=== PATIENT | female | born 1965 | race Hispanic/Latino ===

== ENCOUNTER 2018-05-02 15:09 | Emergency (ER) | payer BC, OTHER ==
[2018-05-02 16:07] LABS: Absolute Lymphocytes (CBC) 1.8 K/uL (0.7-4.9); Absolute Monocytes 0.5 K/uL (0.1-1.3); Absolute Neutrophil 3.8 K/uL (1.8-8.0); Basophils % 0.9 % (0-1.3); Hematocrit 37.8 % (36.0-45.0); Lymphocytes % 28.9 % (15.3-44.8); MCH 30.8 pg (27.0-35.0); MCV 92.8 fL (80-100); MPV 8.9 fL (7.6-11.3); Monocytes % 7.4 % (3.3-12.3); RBC Red Blood Cell Count 4.07 M/uL (3.86-4.86)
[2018-05-02 16:20] LABS: Urine Blood TRACE (NEG); Urine Glucose NEGATIVE (NEG); Urine Protein NEGATIVE (NEG); Urine Specific Gravity <1.005 (1.005-1.030); Urine pH 5.5 (5.0-7.0)
--- NOTE | 2018-05-02 16:40 | RAD REPORT ---
EXAM DESCRIPTION: Hitesh Single View05/02/2018 4:15 pm CLINICAL HISTORY: sob COMPARISON: none FINDINGS: The lungs appear clear of acute infiltrate. The heart is normal size IMPRESSION: No acute abnormalities displayed
[2018-05-02 16:49] LABS: Protime INR 0.95
[2018-05-02 16:52] LABS: Potassium 3.4 mEq/L (3.6-5.0)
[2018-05-02 16:58] LABS: Albumin 4.2 g/dL (3.2-5.5); Bilirubin Direct 0.1 mg/dL (0-0.2); Bilirubin Total 0.6 mg/dL (0.3-1.2); Magnesium 2.1 mg/dL (1.8-2.5)
[2018-05-02 17:01] LABS: CKMB Creatine Kinase MB 0.7 ng/ml (0.3-4.0)
[2018-05-02] MEDS ORDERED: NA CHLORIDE 0.9% 2,000 ML ONE (17:37)
[2018-05-02] MEDS ORDERED: POTASSIUM CL SA 10 MEQ TAB PO ONE (17:37)
--- NOTE | 2018-05-02 17:52 | RAD REPORT ---
EXAM DESCRIPTION: CT - Chest For Pe Angio - 05/02/2018 5:36 pm CLINICAL HISTORY: Chest pain. COMPARISON: None. TECHNIQUE: CT angiogram of the pulmonary arteries was performed with MIP. All CT scans are performed using dose optimization technique as appropriate and may include automated exposure control or mA/KV adjustment according to patient size. FINDINGS: No evidence of pulmonary thromboembolism. No acute aortic finding demonstrated. The lungs are clear. No significant pericardial or pleural fluid. No concerning bony finding. IMPRESSION: No evidence of pulmonary thromboembolism. No acute lung findings.
--- NOTE | 2018-05-02 18:09 | EDPHYS ---
Physician Documentation [facility] Name: Chelsea Ambriz Age: 52 yrs Sex: Female : 1965 Arrival Date: 05/02/2018 Time: 15:12 Bed 24 Private MD: Keith Larsen ED Physician Taiwo Fowler HPI: 05/02 16:52 This 52 yrs old Female presents to ER via Ambulatory with complaints of remi Anxiety, Shortness Of Breath. 16:52 The patient has shortness of breath at rest, with light activity. Onset: The remi symptoms/episode began/occurred just prior to arrival, this morning. 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 - Social history:: Smoking status: Patient/guardian denies using tobacco, Patient uses alcohol, weekly. - Ebola Screening: : No symptoms or risks identified at this time. ROS: 16:53 Constitutional: Negative for fever, chills, and weight loss, Eyes: Negative for injury, remi pain, redness, and discharge, ENT: Negative for injury, pain, and discharge, Neck: Negative for injury, pain, and swelling, Cardiovascular: Negative for chest pain, palpitations, and edema, Back: Negative for injury and pain, : Negative for injury, bleeding, discharge, and swelling, MS/Extremity: Negative for injury and deformity, Skin: Negative for injury, rash, and discoloration, Neuro: Negative for headache, weakness, numbness, tingling, and seizure, Psych: Negative for depression, anxiety, suicide ideation, homicidal ideation, and hallucinations, Allergy/Immunology: Negative for hives, rash, and allergies, Endocrine: Negative for neck swelling, polydipsia, polyuria, polyphagia, and marked weight changes, Hematologic/Lymphatic: Negative for swollen nodes, abnormal bleeding, and unusual bruising. 16:53 Respiratory: Positive for shortness of breath, at rest. 16:53 Abdomen/GI: Positive for early satiety, Negative for abdominal pain, nausea and vomiting. Exam: 16:53 Constitutional: This is a well developed, well nourished patient who is awake, alert, remi and in no acute distress. Head/Face: Normocephalic, atraumatic. Eyes: Pupils equal round and reactive to light, extra-ocular motions intact. Lids and lashes normal. Conjunctiva and sclera are non-icteric and not injected. Cornea within normal limits. Periorbital areas with no swelling, redness, or edema. ENT: Nares patent. No nasal discharge, no septal abnormalities noted. Tympanic membranes are normal and external auditory canals are clear. Oropharynx with no redness, swelling, or masses, exudates, or evidence of obstruction, uvula midline. Mucous membranes moist. Neck: Trachea midline, no thyromegaly or masses palpated, and no cervical lymphadenopathy. Supple, full range of motion without nuchal rigidity, or vertebral point tenderness. No Meningismus. Chest/axilla: Normal chest wall appearance and motion. Nontender with no deformity. No lesions are appreciated. Cardiovascular: Regular rate and rhythm with a normal S1 and S2. No gallops, murmurs, or rubs. Normal PMI, no JVD. No pulse deficits. Respiratory: Lungs have equal breath sounds bilaterally, clear to auscultation and percussion. No rales, rhonchi or wheezes noted. No increased work of breathing, no retractions or nasal flaring. Abdomen/GI: Soft, non-tender, with normal bowel sounds. No distension or tympany. No guarding or rebound. No evidence of tenderness throughout. Back: No spinal tenderness. No costovertebral tenderness. Full range of motion. Female : Normal external genitalia. Skin: Warm, dry with normal turgor. Normal color with no rashes, no lesions, and no evidence of cellulitis. MS/ Extremity: Pulses equal, no cyanosis. Neurovascular intact. Full, normal range of motion. Neuro: Awake and alert, GCS 15, oriented to person, place, time, and situation. Cranial nerves II-XII grossly intact. Motor strength 5/5 in all extremities. Sensory grossly intact. Cerebellar exam normal. Normal gait. Psych: Awake, alert, with orientation to person, place and time. Behavior, mood, and affect are within normal limits. 16:53 Musculoskeletal/extremity: DVT Exam: No signs of deep vein thrombosis. no pain, no swelling, no tenderness, negative Homans' sign noted on exam, no appreciated bluish discoloration, no erythema, no increased warmth. Vital Signs: 15:18 BP 147 / 85; Pulse 103; Resp 20; Temp 98.9(O); Pulse Ox 100% ; Weight 73.03 kg; Height sv 5 ft. 2 in. (157.48 cm); Pain 0/10; 17:05 BP 132 / 86; Pulse 70; Resp 16; Pulse Ox 100% on R/A; Pain 0/10; ed1 19:46 BP 142 / 86; Pulse 73; Resp 20; Temp 97.5(O); Pulse Ox 100% on R/A; Pain 0/10; ed1 15:18 Body Mass Index 29.45 (73.03 kg, 157.48 cm) sv MDM: 15:[address] [facility] 05/02 15:25 Order name: Basic Metabolic Panel; Complete Time: 17:32 [facility] 05/02 15:25 Order name: BNP; Complete Time: 17:32 [facility] 05/02 15:25 Order name: CBC with Diff; Complete Time: 16:56 [facility] 05/02 15:25 Order name: Ckmb; Complete Time: 17:32 [facility] 05/02 15:25 Order name: CPK; Complete Time: 17:32 [facility] 05/02 15:25 Order name: LFT's; Complete Time: 17:32 [facility] 05/02 15:25 Order name: Magnesium; Complete Time: 17:32 [facility] 05/02 15:25 Order name: PT-INR; Complete Time: 16:56 [facility] 05/02 15:25 Order name: Ptt, Activated; Complete Time: 16:56 [facility] 05/02 15:25 Order name: Troponin (emerg Dept Use Only); Complete Time: 17:32 [facility] 05/02 15:25 Order name: D-Dimer; Complete Time: 16:56 [facility] 05/02 15:25 Order name: Urine Culture [facility] 05/02 15:57 Order name: Urine Dipstick--Ancillary (enter results); Complete Time: 16:56 05/02 16:00 Order name: Test, Serum; Complete Time: 16:56 ed1 05/02 15:25 Order name: XRAY Chest (1 view); Complete Time: 16:56 [facility] 05/02 15:25 Order name: EKG; Complete Time: 15:26 [facility] 05/02 15:25 Order name: Cardiac monitoring; Complete Time: 15:47 [facility] 05/02 15:25 Order name: EKG - Nurse/Tech; Complete Time: 15:35 [facility] 05/02 15:25 Order name: IV Saline Lock; Complete Time: 15:47 [facility] 05/02 15:25 Order name: Labs collected and sent; Complete Time: 15:47 [facility] 05/02 15:25 Order name: O2 Per Protocol; Complete Time: 15:47 [facility] 05/02 15:25 Order name: O2 Sat Monitoring; Complete Time: 15:47 [facility] 05/02 15:25 Order name: Urine Dipstick-Ancillary (obtain specimen); Complete Time: 17:37 [facility] 05/02 16:56 Order name: CT Chest For PE Angio; Complete Time: 18:08 [facility] 05/02 16:56 Order name: US Extremity Venous W Compression Kael remi Administered Medications: 18:25 Drug: NS 0.9% 1000 ml Route: IV; Rate: 1 bolus; Site: left antecubital; ed1 19:45 Follow up: IV Status: Completed infusion; IV Intake: 1000ml ed1 18:26 Drug: NS 0.9% 1000 ml Route: IV; Rate: 1 bolus; Site: left antecubital; ed1 19:43 Follow up: IV Status: Completed infusion; IV Intake: 1000ml ed1 18:26 Drug: Potassium Chloride 20 mEq Route: PO; ed1 19:45 Follow up: Response: No adverse reaction ed1 Disposition: 05/02/18 18:08 Discharged to Home. Impression: Anxiety disorder, unspecified, Dyspnea, unspecified. - Condition is Stable. - Discharge Instructions: Panic Attacks, Shortness of Breath, Shortness of Breath, [id number], Panic Attacks, [id number]. - Prescriptions for Protonix 40 mg Oral Tablet, Delayed Release (E.C.) - take 1 tablet by ORAL route once daily; 14 tablet. Xanax 0.5 mg Oral Tablet - take 1 tablet by ORAL route every 8 hours As needed; 20 tablet. - Medication Reconciliation Form, Thank You Letter, Antibiotic Education, Prescription Opioid Use form. - Follow up: Keith Larsen; When: 2 - 3 days; Reason: Recheck today's complaints, Continuance of care, Re-evaluation by your physician. - Problem is new. - Symptoms have improved. Signatures: Dispatcher [employer] Shannon Ambrose RN RN sv Anderson, Corey, MD MD cha Riggs, Erika, IT PORTFOLIO MANAGER IT PORTFOLIO MANAGER ed1 Corrections: (The following items were deleted from the chart) 19:48 18:08 05/02/2018 18:08 Discharged to Home. Impression: Anxiety disorder, unspecified; ed1 Dyspnea, unspecified. Condition is Stable. Discharge Instructions: Panic Attacks, Shortness of Breath, Shortness of Breath, [id number], Panic Attacks, Vkho-[id number]. Prescriptions for Protonix 40 mg Oral Tablet, Delayed Release (E.C.) - take 1 tablet by ORAL route once daily; 14 tablet, Xanax 0.5 mg Oral Tablet - take 1 tablet by ORAL route every 8 hours As needed; 20 tablet. and Forms are Medication Reconciliation Form, Thank You Letter, Antibiotic Education, Prescription Opioid Use. Follow up: Keith Larsen; When: 2 - 3 days; Reason: Recheck today's complaints, Continuance of care, Re-evaluation by your physician. Problem is new. Symptoms have improved. remi
--- NOTE | 2018-05-02 18:09 | ER ---
Nurse's Notes [facility] Name: Chelsea Ambriz Age: 52 yrs Sex: Female : 1965 Arrival Date: 05/02/2018 Time: 15:12 Bed 24 Private MD: Keith Larsen Diagnosis: Anxiety disorder, unspecified;Dyspnea, unspecified Presentation: 05/02 15:16 Presenting complaint: Patient states: SOB since this morning and then started having sv anxiety. c/o nausea/acid reflux that has been going on for weeks. Transition of care: patient was not received from another setting of care. Onset of symptoms was May 02, 2018. Care prior to arrival: None. 15:16 Method Of Arrival: Ambulatory sv 15:16 Acuity: STEPHANY 3 sv 15:26 Risk Assessment: Do you want to hurt yourself or someone else? Patient reports no ed1 desire to harm self or others. Initial Sepsis Screen: Does the patient meet any 2 criteria? No. Patient's initial sepsis screen is negative. Does the patient have a suspected source of infection? No. Patient's initial sepsis screen is negative. 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 - Social history:: Smoking status: Patient/guardian denies using tobacco, Patient uses alcohol, weekly. - Ebola Screening: : No symptoms or risks identified at this time. Screenin:26 Abuse screen: Denies threats or abuse. Denies injuries from another. Nutritional ed1 screening: No deficits noted. Tuberculosis screening: No symptoms or risk factors identified. Fall Risk None identified. Assessment: 15:26 General: Appears in no apparent distress. Behavior is calm, cooperative. Pain: Denies ed1 pain. Neuro: Level of Consciousness is awake, alert, obeys commands, Oriented to person, place, time, situation. Cardiovascular: Denies chest pain, Heart tones S1 S2 present. Respiratory: Reports shortness of breath at rest Airway is patent Respiratory effort is even, unlabored, Respiratory pattern is regular, symmetrical, Breath sounds are clear bilaterally. GI: Reports acid reflux symptoms for a "couple of weeks". : No signs and/or symptoms were reported regarding the genitourinary system. EENT: No signs and/or symptoms were reported regarding the EENT system. Derm: Skin is pink, warm \\T\\ dry. Musculoskeletal: Circulation, motion, and sensation intact. 15:35 General: The previous assessment is accurate, call light remains within reach. . ss 17:05 Reassessment: Patient appears in no apparent distress at this time. No changes from ed1 previously documented assessment. Patient and/or family updated on plan of care and expected duration. Pain level reassessed. Patient is alert, oriented x 3, equal unlabored respirations, skin warm/dry/pink. Patient denies pain at this time. 19:46 Reassessment: Patient appears in no apparent distress at this time. Patient and/or ed1 family updated on plan of care and expected duration. Pain level reassessed. Patient is alert, oriented x 3, equal unlabored respirations, skin warm/dry/pink. Patient denies pain at this time. Patient states feeling better. Patient states symptoms have improved. Vital Signs: 15:18 BP 147 / 85; Pulse 103; Resp 20; Temp 98.9(O); Pulse Ox 100% ; Weight 73.03 kg; Height sv 5 ft. 2 in. (157.48 cm); Pain 0/10; 17:05 BP 132 / 86; Pulse 70; Resp 16; Pulse Ox 100% on R/A; Pain 0/10; ed1 19:46 BP 142 / 86; Pulse 73; Resp 20; Temp 97.5(O); Pulse Ox 100% on R/A; Pain 0/10; ed1 15:18 Body Mass Index 29.45 (73.03 kg, 157.48 cm) sv ED Course: 15:12 Patient arrived in ED. mr 15:12 Keith Larsen MD is Private Physician. mr 15:17 Triage completed. sv 15:18 Arm band placed on right wrist. sv 15:22 Karo Duenas LVN is Primary Nurse. ed1 15:22 Taiwo Fowler MD is Attending Physician. remi 15:26 Patient has correct armband on for positive identification. Placed in gown. Bed in low ed1 position. Call light in reach. Adult w/ patient. salesforce consultant on. Pulse ox on. NIBP on. 15:36 EKG done, by machine shop repair technician. reviewed by Taiwo Fowler MD. sm3 15:39 Inserted saline lock: 22 gauge in right antecubital area, using aseptic technique. jb5 Blood collected. 16:15 XRAY Chest (1 view) In Process Unspecified. EDMS 17:09 Notified ED physician of a critical lab result(s). D-Dimer 531. ed1 17:36 CT Chest For PE Angio In Process Unspecified. EDMS 18:08 Keith Larsen MD is Referral Physician. remi 18:08 US Extremity Venous W Compression Kael In Process Unspecified. EDMS 19:46 No provider procedures requiring assistance completed. IV discontinued, intact, ed1 bleeding controlled, No redness/swelling at site. Pressure dressing applied. Administered Medications: 18:25 Drug: NS 0.9% 1000 ml Route: IV; Rate: 1 bolus; Site: left antecubital; ed1 19:45 Follow up: IV Status: Completed infusion; IV Intake: 1000ml ed1 18:26 Drug: NS 0.9% 1000 ml Route: IV; Rate: 1 bolus; Site: left antecubital; ed1 19:43 Follow up: IV Status: Completed infusion; IV Intake: 1000ml ed1 18:26 Drug: Potassium Chloride 20 mEq Route: PO; ed1 19:45 Follow up: Response: No adverse reaction ed1 Intake: 19:43 IV: 1000ml; Total: 1000ml. ed1 19:45 IV: 1000ml; Total: 2000ml. ed1 Outcome: 18:08 Discharge ordered by . [facility] 19:46 Discharged to home ambulatory, with significant other. ed1 19:46 Condition: good 19:46 Discharge instructions given to patient, Instructed on discharge instructions, follow up and referral plans. medication usage, Demonstrated understanding of instructions, follow-up care, medications, Prescriptions given X 2. 19:48 Patient left the ED. ed1 Signatures: Dispatcher [employer] Shannon Ambrose, Taiwo Carter RN, MD MD cha Rivera, Maria mr Smirch, Shelby, RN RN ss Yulissa, Karo, SHIFT SUPERVISOR MELTING SHIFT SUPERVISOR MELTING ed1 Tisha Vázquez jb5 Chey Davidson 3
--- NOTE | 2018-05-02 18:13 | RAD REPORT ---
EXAM DESCRIPTION: VAS - Extrem Venous W Compress Kael - 05/02/2018 6:08 pm CLINICAL HISTORY: Bilateral leg edema and swelling. COMPARISON: None. TECHNIQUE: Real-time sonographic interrogation of the left and right lower extremity deep venous sys tems was performed. FINDINGS: Normal compressibility, flow augmentation, phasic flow and spontaneous flow is identified in both the left and right lower extremity deep venous systems. IMPRESSION: No sonographic evidence of left or right lower extremity deep venous thrombosis.
--- NOTE | 2018-05-03 06:23 | EKG ---
Test Date: 2018-05-02 Test Time: 15:30:55 Geological Specialist: ZULY MEASUREMENT RESULTS: Intervals: Rate: 89 IA: 140 QRSD: 92 QT: 364 QTc: 442 [place]: P: 79 IA: 140 QRS: 61 T: 55 INTERPRETIVE STATEMENTS: Normal sinus rhythm Normal ECG No previous ECG available for comparison Electronically Signed On 05-03-18 06:22:21 CDT by Sushil Fraire
== END 2018-05-02 19:48 | disposition home or self-care (01) ==
LOC: ER 15:09
DX: F41.9 Anxiety disorder, unspecified (principal); Z88.0 Allergy status to penicillin; Z88.7 Allergy status to serum and vaccine; Z91.010 Allergy to peanuts; Z91.012 Allergy to eggs; Z91.018 Allergy to other foods
CPT/HCPCS: 36415; 71045; 71275; 80048; 80076; 81003; 82550; 82553; 83735; 83880; 84484; 84703; 85025; 85379; 85610; 85730; 87086; 87088; 93005; 93970; 96360; 99284; J7030; Q9967

== ENCOUNTER 2021-04-05 05:18 | Emergency (ER) | payer BC, OTHER ==
[2021-04-05 05:46] LABS: Urine Blood 3+ (Negative); Urine Glucose Negative (Negative); Urine Protein Negative (Negative); Urine pH 6.5 (5.0-7.0)
--- NOTE | 2021-04-05 06:17 | ER ---
Nurse's Notes [facility] Name: Chelsea Ambriz Age: 55 yrs Sex: Female : 1965 Arrival Date: 04/05/2021 Time: 05:23 Bed 27 Private MD: Sudhakar Solis E Diagnosis: Urinary tract infection, site not specified;Dysuria Presentation: 04/05 05:28 Chief complaint: Patient states: has had pain with urination since this morning, has hx iw of UTI, feels similar, had discoloration to her urine, denies back pain, denies fever. Coronavirus screen: At this time, the client does not indicate any symptoms associated with coronavirus-19. Ebola Screen: Patient negative for fever greater than or equal to 101.5 degrees Fahrenheit, and additional compatible Ebola Virus Disease symptoms Patient denies exposure to infectious person. Patient denies travel to an Ebola-affected area in the 21 days before illness onset. No symptoms or risks identified at this time. Initial Sepsis Screen: Does the patient meet any 2 criteria? No. Patient's initial sepsis screen is negative. Does the patient have a suspected source of infection? No. Patient's initial sepsis screen is negative. Risk Assessment: Do you want to hurt yourself or someone else? Patient reports no desire to harm self or others. Onset of symptoms was April 05, 2021. 05:28 Method Of Arrival: Ambulatory iw 05:28 Acuity: STEPHANY 4 iw Triage Assessment: 05:51 General: Appears in no apparent distress. comfortable, Behavior is calm, cooperative, bb3 appropriate for age. Pain: Complains of pain in suprapubic area Pain currently is 4 out of 10 on a pain scale. Quality of pain is described as burning, pressure, Pain began 1 day ago. EENT: No deficits noted. Neuro: Level of Consciousness is awake, alert, obeys commands, Oriented to person, place, time, situation, Appropriate for age Gait is steady, Speech is normal. Cardiovascular: Denies chest pain. Respiratory: Airway is patent Respiratory effort is even, unlabored, Respiratory pattern is regular, symmetrical. GI: Abdomen is flat, non-distended. : Reports burning with urination, pain in suprapubic area. Derm: Skin is intact, is healthy with good turgor, Skin is dry, Skin is pink, warm \T\ dry. normal. Musculoskeletal: No deficits noted. Historical: - Allergies: 05:31 PENICILLINS; iw - Home Meds: 05:31 Protonix Oral once daily [Active]; Zyrtec 10 mg Oral tab 1 tab once daily [Active]; iw - PMHx: 05:31 Anxiety; High Cholesterol; acid reflux; iw - PSHx: 05:31 None; iw - Immunization history:: Adult Immunizations not up to date, Client reports having NOT received the Covid vaccine. - Social history:: Smoking status: Patient/guardian denies using tobacco, but has a distant history of tobacco abuse. - Family history:: not pertinent. Screenin:37 Abuse screen: Denies threats or abuse. Nutritional screening: No deficits noted. bb3 Tuberculosis screening: No symptoms or risk factors identified. Fall Risk None identified. Gait- Normal/Bed Rest/Wheelchair (0 pts) Mental Status- Oriented to own ability (0 pts). Assessment: 05:55 General: Appears in no apparent distress. comfortable, Behavior is calm, cooperative, bb3 appropriate for age. 06:36 Reassessment: Patient appears in no apparent distress at this time. Patient and/or bb3 family updated on plan of care and expected duration. Pain level reassessed. Patient is alert, oriented x 3, equal unlabored respirations, skin warm/dry/pink. Patient states feeling better. Patient states symptoms have improved. Pain: Complains of pain in suprapubic area Pain currently is 2 out of 10 on a pain scale. Quality of pain is described as burning, pressure. Vital Signs: 05:28 BP 134 / 100; Pulse 95; Resp 16; Temp 97.7; Pulse Ox 100% on R/A; Weight 81.65 kg; iw Height 5 ft. 2 in. (157.48 cm); 05:54 BP 124 / 87; Pulse 80; Resp 18; Temp 98.3; Pulse Ox 99% ; Pain 4/10; bb3 06:37 BP 128 / 90; Pulse 74; Resp 17; Pulse Ox 100% ; Pain 3/10; bb3 05:28 Body Mass Index 32.92 (81.65 kg, 157.48 cm) iw ED Course: 05:23 Patient arrived in ED. es 05:24 Sudhakar Solis MD is Private Physician. es 05:30 Triage completed. iw 05:31 Arm band placed on. iw 05:39 Taiwo Fowler MD is Attending Physician. remi 06:15 Sudhakar Solis MD is Referral Physician. remi 06:37 No apparent distress. bb3 06:37 Bed in low position. Call light in reach. bb3 06:37 No provider procedures requiring assistance completed. Patient did not have IV access bb3 during this emergency room visit. Administered Medications: 06:20 Drug: LevaQUIN (levofloxacin) 750 mg Route: PO; bb3 06:35 Follow up: Response: No adverse reaction bb3 06:20 Drug: Pyridium (phenazopyridine) 200 mg Route: PO; bb3 06:35 Follow up: Response: No adverse reaction; Pain is decreased bb3 Outcome: 06:16 Discharge ordered by . remi 06:37 Discharged to home ambulatory. bb3 06:37 Condition: good 06:37 Discharge instructions given to patient, Instructed on discharge instructions, follow up and referral plans. medication usage, Demonstrated understanding of Prescriptions given X 2. 06:39 Patient left the ED. bb3 Signatures: Taiwo Fowler MD MD cha Salyer, Lin Olivares, RN RN Antonieta Gillespie bb3
--- NOTE | 2021-04-05 06:17 | EDPHYS ---
Physician Documentation [facility] Name: Chelsea Ambriz Age: 55 yrs Sex: Female : 1965 Arrival Date: 04/05/2021 Time: 05:23 Bed 27 Private MD: Sudhakar Solis E ED Physician Taiwo Fowler HPI: 04/05 06:10 This 55 yrs old Female presents to ER via Ambulatory with complaints of remi Urinary Problem. 06:10 The patient presents with urinary symptoms. Onset: The symptoms/episode began/occurred remi 2 day(s) ago. Modifying factors: The symptoms are alleviated by nothing, the symptoms are aggravated by nothing. Associated signs and symptoms: The patient has no apparent associated signs or symptoms. Severity of symptoms: At their worst the symptoms were mild, in the emergency department the symptoms are unchanged. The patient is sexually active, reportedly has a single partner. The patient has experienced similar episodes in the past, a few times. Historical: - Allergies: 05:31 PENICILLINS; iw - Home Meds: 05:31 Protonix Oral once daily [Active]; Zyrtec 10 mg Oral tab 1 tab once daily [Active]; iw - PMHx: 05:31 Anxiety; High Cholesterol; acid reflux; iw - PSHx: 05:31 None; iw - Immunization history:: Adult Immunizations not up to date, Client reports having NOT received the Covid vaccine. - Social history:: Smoking status: Patient/guardian denies using tobacco, but has a distant history of tobacco abuse. - Family history:: not pertinent. ROS: 06:10 Constitutional: Negative for fever, chills, and weight loss, Eyes: Negative for injury, remi pain, redness, and discharge, ENT: Negative for injury, pain, and discharge, Neck: Negative for injury, pain, and swelling, Cardiovascular: Negative for chest pain, palpitations, and edema, Respiratory: Negative for shortness of breath, cough, wheezing, and pleuritic chest pain, Back: Negative for injury and pain, : Negative for injury, bleeding, discharge, and swelling, MS/Extremity: Negative for injury and deformity, Skin: Negative for injury, rash, and discoloration, Neuro: Negative for headache, weakness, numbness, tingling, and seizure, Psych: Negative for depression, anxiety, suicide ideation, homicidal ideation, and hallucinations, Allergy/Immunology: Negative for hives, rash, and allergies, Endocrine: Negative for neck swelling, polydipsia, polyuria, polyphagia, and marked weight changes, Hematologic/Lymphatic: Negative for swollen nodes, abnormal bleeding, and unusual bruising. 06:10 Abdomen/GI: Positive for abdominal pain, of the suprapubic area. Exam: 06:10 Constitutional: This is a well developed, well nourished patient who is awake, alert, remi and in no acute distress. Head/Face: Normocephalic, atraumatic. Eyes: Pupils equal round and reactive to light, extra-ocular motions intact. Lids and lashes normal. Conjunctiva and sclera are non-icteric and not injected. Cornea within normal limits. Periorbital areas with no swelling, redness, or edema. ENT: Nares patent. No nasal discharge, no septal abnormalities noted. Tympanic membranes are normal and external auditory canals are clear. Oropharynx with no redness, swelling, or masses, exudates, or evidence of obstruction, uvula midline. Mucous membranes moist. Neck: Trachea midline, no thyromegaly or masses palpated, and no cervical lymphadenopathy. Supple, full range of motion without nuchal rigidity, or vertebral point tenderness. No Meningismus. Chest/axilla: Normal chest wall appearance and motion. Nontender with no deformity. No lesions are appreciated. Cardiovascular: Regular rate and rhythm with a normal S1 and S2. No gallops, murmurs, or rubs. Normal PMI, no JVD. No pulse deficits. Respiratory: Lungs have equal breath sounds bilaterally, clear to auscultation and percussion. No rales, rhonchi or wheezes noted. No increased work of breathing, no retractions or nasal flaring. Back: No spinal tenderness. No costovertebral tenderness. Full range of motion. Skin: Warm, dry with normal turgor. Normal color with no rashes, no lesions, and no evidence of cellulitis. MS/ Extremity: Pulses equal, no cyanosis. Neurovascular intact. Full, normal range of motion. Neuro: Awake and alert, GCS 15, oriented to person, place, time, and situation. Cranial nerves II-XII grossly intact. Motor strength 5/5 in all extremities. Sensory grossly intact. Cerebellar exam normal. Normal gait. Psych: Awake, alert, with orientation to person, place and time. Behavior, mood, and affect are within normal limits. 06:10 Abdomen/GI: Inspection: abdomen appears normal, Bowel sounds: normal, Palpation: mild abdominal tenderness, in the suprapubic area, Liver: no appreciated palpable abnormalities, Hernia: not appreciated. Vital Signs: 05:28 BP 134 / 100; Pulse 95; Resp 16; Temp 97.7; Pulse Ox 100% on R/A; Weight 81.65 kg; iw Height 5 ft. 2 in. (157.48 cm); 05:54 BP 124 / 87; Pulse 80; Resp 18; Temp 98.3; Pulse Ox 99% ; Pain 4/10; bb3 06:37 BP 128 / 90; Pulse 74; Resp 17; Pulse Ox 100% ; Pain 3/10; bb3 05:28 Body Mass Index 32.92 (81.65 kg, 157.48 cm) iw MDM: 05:39 Patient medically screened. [facility] 06:14 Differential diagnosis: urinary tract infection. Data reviewed: vital signs, nurses [facility] notes, lab test result(s), urinalysis. 06:18 Data interpreted: monitor tech: not applicable for this patient encounter. rate is remi 80 beats/min, Pulse oximetry: on room air is 99 %. Test interpretation: by ED physician or midlevel provider:. Counseling: I had a detailed discussion with the patient and/or guardian regarding: the historical points, exam findings, and any diagnostic results supporting the discharge/admit diagnosis, lab results, radiology results, the need for outpatient follow up, for definitive care, a family practitioner. 04/05 05:46 Order name: Urine Dipstick-Ancillary EDOH 04/05 06:09 Order name: Urine Culture [facility] 04/05 06:33 Order name: Urine --Ancillary (enter results) tt3 04/05 05:43 Order name: Urine Dipstick-Ancillary (obtain specimen); Complete Time: 05:47 [facility] 04/05 05:43 Order name: Urine Test (obtain specimen); Complete Time: 05:47 [facility] Administered Medications: 06:20 Drug: LevaQUIN (levofloxacin) 750 mg Route: PO; bb3 06:35 Follow up: Response: No adverse reaction bb3 06:20 Drug: Pyridium (phenazopyridine) 200 mg Route: PO; bb3 06:35 Follow up: Response: No adverse reaction; Pain is decreased bb3 Disposition: 04/05/21 06:16 Discharged to Home. Impression: Urinary tract infection, site not specified, Dysuria. - Condition is Stable. - Discharge Instructions: Dysuria, Urinary Tract Infection, Adult, Urinary Tract Infection, Adult, [id number]. - Prescriptions for Levaquin 500 mg Oral Tablet - take 1 tablet by ORAL route once daily for 7 days; 7 tablet. Pyridium 200 mg Oral Tablet - take 1 tablet by ORAL route every 8 hours for 3 days; 9 tablet. - Medication Reconciliation Form, Thank You Letter, Antibiotic Education, Prescription Opioid Use form. - Follow up: Sudhakar Solis MD; When: 2 - 3 days; Reason: Recheck today's complaints, Continuance of care, Re-evaluation by your physician. - Problem is new. - Symptoms have improved. Signatures: Dispatcher [employer] [facility] Taiwo Fowler MD MD cha Williams, Irene, RN RN iw Antonieta Ziegler bb3 Corrections: (The following items were deleted from the chart) 06:35 05:48 URINE --ANCILLARY+UC.LAB.BRZ ordered. [facility] 06:39 06:16 04/05/2021 06:16 Discharged to Home. Impression: Urinary tract infection, site bb3 not specified; Dysuria. Condition is Stable. Forms are Medication Reconciliation Form, Thank You Letter, Antibiotic Education, Prescription Opioid Use. Follow up: Sudhakar Solis; When: 2 - 3 days; Reason: Recheck today's complaints, Continuance of care, Re-evaluation by your physician. Problem is new. Symptoms have improved. remi
[2021-04-05] MEDS ORDERED: PHENAZOPYRIDINE 100MG TAB PO ONE (06:35)
[2021-04-05] MEDS ORDERED: levoFLOXacin 750 MG TAB ONE (06:36)
[2021-04-05 06:47] VITALS: TEMP 98.3
[2021-04-05 06:49] VITALS: BP 128/90; O2SAT 100
== END 2021-04-05 06:39 | disposition home or self-care (01) ==
LOC: ER 05:18
DX: N39.0 Urinary tract infection, site not specified (principal); E78.00 Pure hypercholesterolemia, unspecified; Z88.0 Allergy status to penicillin
CPT/HCPCS: 81003; 81025; 99283

== ENCOUNTER 2021-11-19 08:31 | Emergency (ER) | payer BC ==
[2021-11-19 09:10] LABS: Urine Blood 3+ (Negative); Urine Glucose Negative (Negative); Urine Protein Negative (Negative); Urine Specific Gravity 1.015 (1.005-1.030); Urine pH 5.5 (5.0-7.0)
[2021-11-19 10:25] LABS: Urine Specific Gravity/Preg 1.015 (1.005-1.030)
--- NOTE | 2021-11-19 10:28 | EDPHYS ---
Physician Documentation [facility] Name: Chelsea Ambriz Age: 55 yrs Sex: Female : 1965 Arrival Date: 11/19/2021 Time: 08:38 Bed 9 Private MD: Sudhakar Solis E ED Physician Taiwo Fowler HPI: 11/19 10:23 This 55 yrs old Female presents to ER via Ambulatory with complaints of remi Urinary Problem. 10:23 The patient presents with urinary symptoms, dysuria, frequency, hesitancy. Onset: The remi symptoms/episode began/occurred 3 day(s) ago. Modifying factors: The symptoms are alleviated by nothing, the symptoms are aggravated by nothing. Associated signs and symptoms: Pertinent positives: dysuria. Severity of symptoms: At their worst the symptoms were mild, in the emergency department the symptoms are unchanged. The patient is sexually active, reportedly has a single partner. The patient has experienced similar episodes in the past, a few times. Historical: - Allergies: 08:47 PENICILLINS; elliott 08:47 peanuts; elliott 08:47 FLU VACCINE; elliott 08:47 EGG/POULTRY; elliott - Home Meds: 08:47 Protonix Oral once daily [Active]; Zyrtec 10 mg Oral tab 1 tab once daily [Active]; elliott - PMHx: 08:47 acid reflux; Anxiety; High Cholesterol; elliott - Immunization history:: Adult Immunizations up to date. - Social history:: Smoking status: Patient denies any tobacco usage or history of. - Family history:: not pertinent. ROS: 10:23 Constitutional: Negative for fever, chills, and weight loss, Eyes: Negative for injury, remi pain, redness, and discharge, ENT: Negative for injury, pain, and discharge, Neck: Negative for injury, pain, and swelling, Cardiovascular: Negative for chest pain, palpitations, and edema, Respiratory: Negative for shortness of breath, cough, wheezing, and pleuritic chest pain, Abdomen/GI: Negative for abdominal pain, nausea, vomiting, diarrhea, and constipation, Back: Negative for injury and pain, MS/Extremity: Negative for injury and deformity, Skin: Negative for injury, rash, and discoloration, Neuro: Negative for headache, weakness, numbness, tingling, and seizure, Psych: Negative for depression, anxiety, suicide ideation, homicidal ideation, and hallucinations, Allergy/Immunology: Negative for hives, rash, and allergies, Endocrine: Negative for neck swelling, polydipsia, polyuria, polyphagia, and marked weight changes. 10:23 : Positive for urinary symptoms, small amounts, burning with urination, difficulty urinating. Exam: 10:23 Constitutional: This is a well developed, well nourished patient who is awake, alert, remi and in no acute distress. Head/Face: Normocephalic, atraumatic. Eyes: Pupils equal round and reactive to light, extra-ocular motions intact. Lids and lashes normal. Conjunctiva and sclera are non-icteric and not injected. Cornea within normal limits. Periorbital areas with no swelling, redness, or edema. ENT: Nares patent. No nasal discharge, no septal abnormalities noted. Tympanic membranes are normal and external auditory canals are clear. Oropharynx with no redness, swelling, or masses, exudates, or evidence of obstruction, uvula midline. Mucous membranes moist. Neck: Trachea midline, no thyromegaly or masses palpated, and no cervical lymphadenopathy. Supple, full range of motion without nuchal rigidity, or vertebral point tenderness. No Meningismus. Chest/axilla: Normal chest wall appearance and motion. Nontender with no deformity. No lesions are appreciated. Cardiovascular: Regular rate and rhythm with a normal S1 and S2. No gallops, murmurs, or rubs. Normal PMI, no JVD. No pulse deficits. Respiratory: Lungs have equal breath sounds bilaterally, clear to auscultation and percussion. No rales, rhonchi or wheezes noted. No increased work of breathing, no retractions or nasal flaring. Abdomen/GI: Soft, non-tender, with normal bowel sounds. No distension or tympany. No guarding or rebound. No evidence of tenderness throughout. Back: No spinal tenderness. No costovertebral tenderness. Full range of motion. Skin: Warm, dry with normal turgor. Normal color with no rashes, no lesions, and no evidence of cellulitis. MS/ Extremity: Pulses equal, no cyanosis. Neurovascular intact. Full, normal range of motion. Neuro: Awake and alert, GCS 15, oriented to person, place, time, and situation. Cranial nerves II-XII grossly intact. Motor strength 5/5 in all extremities. Sensory grossly intact. Cerebellar exam normal. Normal gait. Psych: Awake, alert, with orientation to person, place and time. Behavior, mood, and affect are within normal limits. Vital Signs: 08:44 BP 147 / ???; Pulse 95; Resp 18; Temp 98.1(O); Pulse Ox 98% ; Weight 81.65 kg; Height 5 elliott ft. 2 in. (157.48 cm) (R); 08:44 Body Mass Index 32.92 (81.65 kg, 157.48 cm) elliott MDM: 09:24 Patient medically screened. [facility] 10:25 Differential diagnosis: urinary tract infection. Data reviewed: vital signs, nurses [facility] notes, lab test result(s), urinalysis, bacteruria. Data interpreted: cafeteria monitor: rate is 95 beats/min, rhythm is regular, Pulse oximetry: on room air is 98 %. Counseling: I had a detailed discussion with the patient and/or guardian regarding: the historical points, exam findings, and any diagnostic results supporting the discharge/admit diagnosis, lab results, the need for outpatient follow up, for definitive care, a family practitioner. 11/19 09:10 Order name: Urine Dipstick-Ancillary; Complete Time: 09:25 EDWY 11/19 09:25 Order name: Urine Culture [facility] 11/19 10:03 Order name: Urine --Ancillary (enter results) [facility] 11/[facility] 10:03 Order name: Urine Test (obtain specimen); Complete Time: 10:03 [facility] Administered Medications: 10:53 Drug: Bactrim (trimethoprim-sulfamethoxazole) (160 mg-800 mg (DS) 1 tablet Route: PO; [facility] 11:05 Follow up: Response: Medication administered at discharge. 7 10:53 Drug: Cipro (ciprofloxacin) 500 mg Route: PO; jl7 11:05 Follow up: Response: Medication administered at discharge. jl7 Disposition Summary: 11/19/21 10:27 Discharge Ordered Location: Home remi Problem: new remi Symptoms: have improved remi Condition: Stable remi Diagnosis - Dysuria remi - UTI/ Urinary tract infection, site not specified remi Followup: remi - With: Sudhakar Solis MD - When: 2 - 3 days - Reason: Recheck today's complaints, Continuance of care, Re-evaluation by your physician Discharge Instructions: - Discharge Summary Sheet remi - Dysuria remi - Urinary Tract Infection, Adult remi - Urinary Tract Infection, Adult, [id number] Forms: - Medication Reconciliation Form remi - Thank You Letter remi - Antibiotic Education remi - Prescription Opioid Use [facility] Prescriptions: - Cipro 250 mg Oral Tablet - take 2 tablets by ORAL route every 12 hours; 14 tablet; Refills: 0, Product [facility] Selection Permitted - Pyridium 200 mg Oral Tablet - take 1 tablet by ORAL route every 8 hours for 3 days; 9 tablet; Refills: 0, [facility] Product Selection Permitted - Bactrim DS 800-160 mg Oral Tablet - take 1 tablet by ORAL route every 12 hours for 3 days; 6 tablet; Refills: 0, [facility] Product Selection Permitted Signatures: Dispatcher [employer] EDTaiwo Maldonado MD MD cha Leal, Jahala RN RN jl7 Karla Rosas 3 Eboni Jeffers Corrections: (The following items were deleted from the chart) 09:26 09:26 Bladder Scanner ordered. remi khalil
--- NOTE | 2021-11-19 10:28 | ER ---
Nurse's Notes [facility] Name: Chelsea Ambriz Age: 55 yrs Sex: Female : 1965 Arrival Date: 11/19/2021 Time: 08:38 Bed 9 Private MD: Sudhakar Solis E Diagnosis: Dysuria;UTI/ Urinary tract infection, site not specified Presentation: 11/19 08:44 Chief complaint: Patient states: pt presented to ED reporting itching, burning, elliott pressure when urinating x3 days. Coronavirus screen: Vaccine status: Patient reports being unvaccinated. Ebola Screen: Patient denies travel to an Ebola-affected area in the 21 days before illness onset. Initial Sepsis Screen: Does the patient meet any 2 criteria? No. Patient's initial sepsis screen is negative. Does the patient have a suspected source of infection? No. Patient's initial sepsis screen is negative. Risk Assessment: Do you want to hurt yourself or someone else? Patient reports no desire to harm self or others. Onset of symptoms was November 16, 2021. 08:44 Method Of Arrival: Ambulatory elliott 08:44 Acuity: STEPHANY 4 elliott Triage Assessment: 08:47 General: Appears in no apparent distress. Behavior is calm, cooperative. elliott Historical: - Allergies: 08:47 PENICILLINS; elliott 08:47 peanuts; elliott 08:47 FLU VACCINE; elliott 08:47 EGG/POULTRY; elliott - Home Meds: 08:47 Protonix Oral once daily [Active]; Zyrtec 10 mg Oral tab 1 tab once daily [Active]; elliott - PMHx: 08:47 acid reflux; Anxiety; High Cholesterol; elliott - Immunization history:: Adult Immunizations up to date. - Social history:: Smoking status: Patient denies any tobacco usage or history of. - Family history:: not pertinent. Screenin:50 Abuse screen: Denies threats or abuse. Denies injuries from another. Nutritional elliott screening: No deficits noted. Tuberculosis screening: No symptoms or risk factors identified. Fall Risk None identified. Assessment: 08:50 Pain: Complains of pain in pelvis Quality of pain is described as burning, pressure. elliott : Reports burning with urination, pain with urination, Pain is 6 out of 10 on a pain scale. vaginal itching. Vital Signs: 08:44 BP 147 / ???; Pulse 95; Resp 18; Temp 98.1(O); Pulse Ox 98% ; Weight 81.65 kg; Height 5 elliott ft. 2 in. (157.48 cm) (R); 08:44 Body Mass Index 32.92 (81.65 kg, 157.48 cm) elliott ED Course: 08:38 Patient arrived in ED. am2 08:38 Sudhakar Solis MD is Private Physician. am2 08:47 Triage completed. elliott 08:47 Arm band placed on right wrist. elliott 08:50 Patient has correct armband on for positive identification. elliott 08:50 No provider procedures requiring assistance completed. elliott 09:19 Urine collected: clean catch specimen, cloudy. [facility] 09:24 Taiwo Fowler MD is Attending Physician. [facility] 10:26 Sudhakar Solis MD is Referral Physician. [facility] 10:42 Lilo Heck, BATSHEVA is Primary Nurse. jl7 11:05 Patient did not have IV access during this emergency room visit. jl7 Administered Medications: 10:53 Drug: Bactrim (trimethoprim-sulfamethoxazole) (160 mg-800 mg (DS) 1 tablet Route: PO; jl7 11:05 Follow up: Response: Medication administered at discharge. jl7 10:53 Drug: Cipro (ciprofloxacin) 500 mg Route: PO; jl7 11:05 Follow up: Response: Medication administered at discharge. 7 Outcome: 10:27 Discharge ordered by . [facility] 11:05 Discharged to home ambulatory. jl7 11:05 Condition: stable 11:05 Discharge instructions given to patient, Instructed on discharge instructions, follow up and referral plans. medication usage, Demonstrated understanding of instructions, follow-up care, medications, Prescriptions given X 3. 11:06 Patient left the ED. jl7 Signatures: Taiwo Fowler MD MD cha Martinez, Maria [facility] Lilo Heck, RN RN [facility] Lois Law Luis Steele-StagerEboni
[2021-11-19] MEDS ORDERED: CIPROFLOXACIN HCL 500 MG TAB ONE (10:48)
[2021-11-19] MEDS ORDERED: SMZ./TMP. 800/160 MG TABLET ONE (10:48)
[2021-11-19 11:23] VITALS: TEMP 98.1; O2SAT 98
== END 2021-11-19 11:06 | disposition home or self-care (01) ==
LOC: ER 08:31
DX: N39.0 Urinary tract infection, site not specified (principal); Z88.0 Allergy status to penicillin; Z88.7 Allergy status to serum and vaccine; Z91.010 Allergy to peanuts
CPT/HCPCS: 81003; 81025; 87086; 87088; 99283